=== PATIENT | female | born 1955 | race Two or more races ===

== ENCOUNTER 2021-10-04 18:40 | Emergency (ER) | payer OTHER ==
[~2021-10-04] VITALS: Ht 160 cm; Wt 68.0 kg
== END 2021-10-04 21:22 | disposition left against medical advice (07) ==
LOC: ER 18:40
DX: S09.90XA Unspecified injury of head, initial encounter (principal); S49.92XA Unspecified injury of left shoulder and upper arm, initial encounter; V49.49XA Driver injured in collision with other motor vehicles in traffic accident, initial encounter; Y93.I9 Activity, other involving external motion; Y92.413 State road as the place of occurrence of the external cause; S89.92XA Unspecified injury of left lower leg, initial encounter; Z91.040 Latex allergy status